=== PATIENT | female | born 1955 | race Caucasian/White ===

== ENCOUNTER 2017-03-17 18:56 | Inpatient (IN) | payer MEDICARE, OTHER ==
[~2017-03-17] VITALS: Ht 165.1 cm; Wt 61.4 kg
[~2017-03-17 18:56] MED LIST: ALBU8HFA PO; METH125V13 IM; NAPR-1154 PO; PRED10TA23 PO
[2017-03-17] MEDS ORDERED: azithromycin/NS 500mg/250ml 250 ML IV ONE (19:30)
[2017-03-17] MEDS ORDERED: methylPREDNISolone sod succ 125mg/2ml vial IV ONE (19:30)
[2017-03-17] MEDS ORDERED: ipratropium/albuterol 3ml nebule NEB ONE (19:30)
[2017-03-17] MEDS ORDERED: CefTRIAXone 2gm/D5W 50ml ADVTG 50 ML IV ONE (19:30)
[2017-03-17] MEDS ORDERED: magnesium 2GM in 50ml NS 50 ML IV ONE (19:30)
[2017-03-17 19:55] LABS: CLARITY,URINE CLEAR (Clear); COLOR,URINE YELLOW (Yellow); GLUCOSE, URINE NEGATIVE (Neg); KETONES,URINE NEGATIVE (Neg); LEUKOCYTE ESTERASE ,URINE NEGATIVE (Neg); NITRITES, URINE NEGATIVE (Neg); OCCULT BLOOD,URINE TRACE-INTACT (Neg); PROTEIN,URINE NEGATIVE (Neg); UROBILINOGEN,URINE >=8.0 E.U/dL (0.2-1.0)
[2017-03-17 19:56] LABS: URINE HCG NEGATIVE (NEG)
[2017-03-17 20:00] LABS: URINE AMPHETAMINE SCREEN POSITIVE (Neg); URINE BARBITUATE SCREEN NEGATIVE (Neg); URINE BENZODIAZEPINES SCREEN NEGATIVE (Neg); URINE CANNABINOID SCREEN NEGATIVE (Neg); URINE COCAINE SCREEN NEGATIVE (Neg); URINE METHADONE SCREEN NEGATIVE (Neg); URINE OPIATE SCREEN POSITIVE (Neg); URINE PHENCYCLIDINE SCREEN NEGATIVE (Neg)
[2017-03-17 20:07] LABS: UA COLLECTION TYPE FOLEY CATH
[2017-03-17 20:08] LABS: BASOPHILS % (AUTO) 0.4 % (0-1); EOSINOPHILS # (AUTO) 0.3 X10'3 (0-0.9); EOSINOPHILS % (AUTO) 2.4 % (0-6); HEMATOCRIT 46.7 % (35.0-45.0); HEMOGLOBIN 15.1 g/dl (12.0-16.0); LYMPHOCYTES # (AUTO) 1.9 X10'3 (1.1-4.8); LYMPHOCYTES % (AUTO) 14.3 % (21-51); MEAN CORPUSCULAR HEMOGLOBIN 30.9 PG (27.0-31.0); MEAN CORPUSCULAR HGB CONC 32.4 % (33.0-36.5); MEAN CORPUSCULAR VOLUME 95.6 FL (78-98); MEAN PLATELET VOLUME 7.3 FL (7.4-10.4); MONOCYTES # (AUTO) 0.9 X10'3 (0-0.9); MONOCYTES % (AUTO) 6.6 % (2-12); NEUTROPHILS % (AUTO) 76.3 % (42-75); PLATELET COUNT 267 X10'3 (140-440); RED BLOOD COUNT 4.89 X10'6 (4.20-5.60); RED CELL DISTRIBUTION WIDTH 14.7 % (11.5-14.5); WHITE BLOOD COUNT 13.1 X10'3 (4.5-11.0)
[2017-03-17 20:09] LABS: BACTERIA,URINE FEW /HPF (Neg); MUCUS STRANDS FEW /LPF (Neg); RBC,URINE NONE SEEN /HPF (0-2); SQUAMOUS EPITHELIAL CELL,UR MODERATE /LPF (FEW); WBC,URINE 0-4 /HPF (0-4)
[2017-03-17 20:17] LABS: INR 1.1 INR; PARTIAL THROMBOPLASTIN TIME 25 SECONDS (22-32); PROTHROMBIN TIME 11.1 SECONDS (9.0-12.0)
[2017-03-17 20:31] LABS: ALANINE AMINOTRANSFERASE 36 U/L (12-78); ALBUMIN 1.5 G/DL (3.4-5.0); ALBUMIN/GLOBULIN RATIO 0.3 (1.1-1.5); ALKALINE PHOSPHATASE 243 IU/L (46-116); ANION GAP -2 (8-16); ASPARTATE AMINO TRANSFERASE 62 U/L (10-37); BILIRUBIN,TOTAL 0.5 MG/DL (0.1-1.0); BLOOD UREA NITROGEN 13 MG/DL (7-18); BUN/CREATININE RATIO 14.8 (6.6-38.0); CALCIUM 8.6 MG/DL (8.5-10.1); CHLORIDE 100 MMOL/L (99-107); CREATININE 0.88 MG/DL (0.40-0.90); GLUCOSE 130 MG/DL (70-104); MAGNESIUM 1.6 MG/DL (1.5-2.4); POTASSIUM 4.9 MMOL/L (3.5-5.1); SODIUM 138 MMOL/L (135-145); TOTAL CARBON DIOXIDE 39.7 MMOL/L (24-32); TOTAL PROTEIN 7.5 G/DL (6.4-8.2); TROPONIN I < 0.04 NG/ML (0.0-0.05); eGFR 65 ML/MIN
[2017-03-17 21:05] LABS: ABG BASE EXCESS 9.3 mmol/L (-2.0-3.0); ABG HCO3 37.9 mmol/L (22.0-26.0); ABG OXYGEN SATURATION 96.8 % (95-98); ABG PCO2 (T) 71.6 mmHg (32.0-45.0); ABG PH (T) 7.343 (7.350-7.450); ABG PO2 (T) 96.7 mmHg (83-108); ALLEN'S TEST Positive; FCOHb 0.8 % (0.5-1.5); FLOW 5 L/min; FMetHb 0.3 % (0.3-1.12); FO2Hb 95.7 % (94-100); PATIENT TEMPERATURE 37.4; TOTAL HEMOGLOBIN 14.6 G/dl (12.0-16.0)
[2017-03-17 23:06] LABS: ABG BASE EXCESS 10.3 mmol/L (-2.0-3.0); ABG HCO3 37.2 mmol/L (22.0-26.0); ABG OXYGEN SATURATION 92.8 % (95-98); ABG PCO2 (T) 59.2 mmHg (32.0-45.0); ABG PH (T) 7.417 (7.350-7.450); ABG PO2 (T) 64.4 mmHg (83-108); ALLEN'S TEST Positive; FMetHb 0.3 % (0.3-1.12); FO2Hb 91.6 % (94-100); PATIENT TEMPERATURE 37.2
[2017-03-17] MEDS ORDERED: ipratropium/albuterol 3ml nebule NEB PRN (23:30)
[2017-03-17] MEDS ORDERED: mag hydrox/Alum hydrox/simeth 30ml oral suspension PO PRN (23:30)
[2017-03-17] MEDS ORDERED: acetaminophen 325mg tablet PO PRN ×2 (23:30)
[2017-03-17] MEDS ORDERED: magnesium hydroxide 30ml (MOM) UD suspension PO PRN (23:30)
[2017-03-17] MEDS ORDERED: ondansetron/PF 4mg/2ml inj IV PRN (23:30)
[2017-03-17] MEDS ORDERED: morphine 2 MG/ML inj. syringe IV PRN (23:30)
[2017-03-18] MEDS: normal saline 1000ml 1,000 ML IV SCH ×3 (00:28→18:59)
[2017-03-18] MEDS: methylPREDNISolone sod succ 125mg/2ml vial IV SCH ×4 (02:08→19:50)
[2017-03-18 07:50] LABS: BASOPHILS % (AUTO) 0.2 % (0-1); EOSINOPHILS # (AUTO) 0.1 X10'3 (0-0.9); EOSINOPHILS % (AUTO) 1.1 % (0-6); HEMATOCRIT 41.6 % (35.0-45.0); HEMOGLOBIN 13.9 g/dl (12.0-16.0); LYMPHOCYTES # (AUTO) 0.9 X10'3 (1.1-4.8); LYMPHOCYTES % (AUTO) 7.7 % (21-51); MEAN CORPUSCULAR HEMOGLOBIN 31.3 PG (27.0-31.0); MEAN CORPUSCULAR HGB CONC 33.4 % (33.0-36.5); MEAN CORPUSCULAR VOLUME 93.8 FL (78-98); MEAN PLATELET VOLUME 7.7 FL (7.4-10.4); MONOCYTES # (AUTO) 0.2 X10'3 (0-0.9); MONOCYTES % (AUTO) 1.4 % (2-12); NEUTROPHILS # (AUTO) 10.2 X10'3 (1.8-7.7); NEUTROPHILS % (AUTO) 89.6 % (42-75); PLATELET COUNT 245 X10'3 (140-440); RED BLOOD COUNT 4.44 X10'6 (4.20-5.60); RED CELL DISTRIBUTION WIDTH 14.2 % (11.5-14.5); WHITE BLOOD COUNT 11.4 X10'3 (4.5-11.0)
[2017-03-18 07:59] LABS: ALBUMIN 1.3 G/DL (3.4-5.0); ANION GAP 1 (8-16); BLOOD UREA NITROGEN 18 MG/DL (7-18); BUN/CREATININE RATIO 20.2 (6.6-38.0); CALCIUM 8.3 MG/DL (8.5-10.1); CHLORIDE 102 MMOL/L (99-107); CREATININE 0.89 MG/DL (0.40-0.90); GLUCOSE 161 MG/DL (70-104); POTASSIUM 5.1 MMOL/L (3.5-5.1); SODIUM 138 MMOL/L (135-145); TOTAL CARBON DIOXIDE 34.9 MMOL/L (24-32); eGFR 64 ML/MIN
[2017-03-18] MEDS ORDERED: CefTRIAXone 2gm/D5W 50ml ADVTG 50 ML IV SCH (08:00)
[2017-03-18] MEDS: enoxaparin 40mg/0.4ml syringe SUBCUT SCH (08:38)
[2017-03-18] MEDS: azithromycin/NS 500mg/250ml 250 ML IV SCH (09:25)
[2017-03-18] MEDS ORDERED: NO HOME MEDS (15:34)
[2017-03-18 17:10] VITALS: BP 150/77
[2017-03-18] MEDS: nicotine 21mg patch - 24 hr TD SCH (18:01)
[2017-03-18 19:00] VITALS: BP 104/71
[2017-03-18] MEDS: morphine 2 MG/ML inj. syringe IV PRN (21:59)
[2017-03-18 23:00] VITALS: BP 165/86
[2017-03-19] MEDS: methylPREDNISolone sod succ 125mg/2ml vial IV SCH ×4 (02:08→19:48)
[2017-03-19] MEDS: normal saline 1000ml 1,000 ML IV SCH ×2 (02:16→15:18)
[2017-03-19 03:00] VITALS: BP 128/67
[2017-03-19 05:38] LABS: ALBUMIN 1.4 G/DL (3.4-5.0); ANION GAP 1 (8-16); BLOOD UREA NITROGEN 24 MG/DL (7-18); BUN/CREATININE RATIO 27.9 (6.6-38.0); CALCIUM 8.5 MG/DL (8.5-10.1); CHLORIDE 102 MMOL/L (99-107); CREATININE 0.86 MG/DL (0.40-0.90); GLUCOSE 243 MG/DL (70-104); POTASSIUM 5.2 MMOL/L (3.5-5.1); SODIUM 134 MMOL/L (135-145); TOTAL CARBON DIOXIDE 31.4 MMOL/L (24-32); eGFR 67 ML/MIN
[2017-03-19 05:43] LABS: BASOPHILS % (AUTO) 0.1 % (0-1); EOSINOPHILS # (AUTO) 0.2 X10'3 (0-0.9); EOSINOPHILS % (AUTO) 1.3 % (0-6); HEMATOCRIT 43.5 % (35.0-45.0); HEMOGLOBIN 14.3 g/dl (12.0-16.0); LYMPHOCYTES # (AUTO) 0.9 X10'3 (1.1-4.8); LYMPHOCYTES % (AUTO) 5.1 % (21-51); MEAN CORPUSCULAR HGB CONC 32.8 % (33.0-36.5); MEAN CORPUSCULAR VOLUME 94.4 FL (78-98); MEAN PLATELET VOLUME 7.9 FL (7.4-10.4); MONOCYTES # (AUTO) 0.3 X10'3 (0-0.9); MONOCYTES % (AUTO) 1.6 % (2-12); NEUTROPHILS # (AUTO) 16.5 X10'3 (1.8-7.7); NEUTROPHILS % (AUTO) 91.9 % (42-75); PLATELET COUNT 287 X10'3 (140-440); RED BLOOD COUNT 4.61 X10'6 (4.20-5.60); RED CELL DISTRIBUTION WIDTH 14.4 % (11.5-14.5); WHITE BLOOD COUNT 17.9 X10'3 (4.5-11.0)
[2017-03-19 06:00] VITALS: BP 135/69
[2017-03-19] MEDS: CefTRIAXone 2gm/NS 100ml IVPB 100 ML IV SCH (08:58)
[2017-03-19] MEDS: azithromycin/NS 500mg/250ml 250 ML IV SCH (08:58)
[2017-03-19] MEDS: enoxaparin 40mg/0.4ml syringe SUBCUT SCH (08:59)
[2017-03-19] MEDS: LACTOBACILLUS RHAMNOSUS GG 15 billion unit sprinkle caps PO SCH (08:59)
[2017-03-19] MEDS: nicotine 21mg patch - 24 hr TD SCH (09:00)
[2017-03-19 11:00] VITALS: BP 158/82
[2017-03-19] MEDS: clonazePAM 1mg tablet PO PRN (11:19)
[2017-03-19 15:00] VITALS: BP 152/83
[2017-03-19 15:51] LABS: ABG BASE EXCESS 2.9 mmol/L (-2.0-3.0); ABG HCO3 29.4 mmol/L (22.0-26.0); ABG PCO2 (T) 52.5 mmHg (32.0-45.0); ABG PH (T) 7.366 (7.350-7.450); ABG PO2 (T) 62.9 mmHg (83-108); ALLEN'S TEST Positive; FCOHb 0.1 % (0.5-1.5); FLOW 6 L/min; FMetHb 0.4 % (0.3-1.12); FO2Hb 90.5 % (94-100); RESPIRATORY RATE (OBSERVED) 18 b/min; TOTAL HEMOGLOBIN 14.1 G/dl (12.0-16.0)
[2017-03-19 19:00] VITALS: BP 157/83
[2017-03-19] MEDS: morphine 2 MG/ML inj. syringe IV PRN (22:59)
[2017-03-19 23:00] VITALS: BP 149/87
[2017-03-20] VITALS (7 sets, daily range): BP systolic 139–175; BP diastolic 71–88
[2017-03-20] MEDS: normal saline 1000ml 1,000 ML IV SCH ×2 (01:07→12:19)
[2017-03-20] MEDS: methylPREDNISolone sod succ 125mg/2ml vial IV SCH ×4 (02:37→19:48)
[2017-03-20 05:13] LABS: BASOPHILS % (AUTO) 0.1 % (0-1); EOSINOPHILS # (AUTO) 0.2 X10'3 (0-0.9); EOSINOPHILS % (AUTO) 1.3 % (0-6); HEMATOCRIT 41.2 % (35.0-45.0); HEMOGLOBIN 13.7 g/dl (12.0-16.0); LYMPHOCYTES # (AUTO) 0.8 X10'3 (1.1-4.8); LYMPHOCYTES % (AUTO) 4.8 % (21-51); MEAN CORPUSCULAR HEMOGLOBIN 31.2 PG (27.0-31.0); MEAN CORPUSCULAR HGB CONC 33.2 % (33.0-36.5); MEAN PLATELET VOLUME 7.5 FL (7.4-10.4); MONOCYTES # (AUTO) 0.3 X10'3 (0-0.9); MONOCYTES % (AUTO) 1.9 % (2-12); NEUTROPHILS # (AUTO) 16.2 X10'3 (1.8-7.7); NEUTROPHILS % (AUTO) 91.9 % (42-75); PLATELET COUNT 271 X10'3 (140-440); RED BLOOD COUNT 4.38 X10'6 (4.20-5.60); RED CELL DISTRIBUTION WIDTH 14.6 % (11.5-14.5); WHITE BLOOD COUNT 17.6 X10'3 (4.5-11.0)
[2017-03-20 05:40] LABS: ALBUMIN 1.4 G/DL (3.4-5.0); ANION GAP 4 (8-16); BLOOD UREA NITROGEN 26 MG/DL (7-18); BUN/CREATININE RATIO 33.8 (6.6-38.0); CHLORIDE 106 MMOL/L (99-107); CREATININE 0.77 MG/DL (0.40-0.90); GLUCOSE 145 MG/DL (70-104); POTASSIUM 4.7 MMOL/L (3.5-5.1); SODIUM 139 MMOL/L (135-145); TOTAL CARBON DIOXIDE 29.3 MMOL/L (24-32); eGFR 76 ML/MIN
[2017-03-20] MEDS: enoxaparin 40mg/0.4ml syringe SUBCUT SCH (07:37)
[2017-03-20] MEDS: CefTRIAXone 2gm/NS 100ml IVPB 100 ML IV SCH (07:38)
[2017-03-20] MEDS: azithromycin/NS 500mg/250ml 250 ML IV SCH (07:38)
[2017-03-20] MEDS: nicotine 21mg patch - 24 hr TD SCH (07:38)
[2017-03-20] MEDS: LACTOBACILLUS RHAMNOSUS GG 15 billion unit sprinkle caps PO SCH (07:38)
[2017-03-20] MEDS: morphine 2 MG/ML inj. syringe IV PRN ×2 (11:39→15:24)
[2017-03-20] MEDS: hydrALAZINE 20mg/ml inj. IV PRN (15:22)
[2017-03-20] MEDS ORDERED: furosemide 20 MG/2 ML vial IV ONE (18:05)
[2017-03-21] VITALS (8 sets, daily range): BP systolic 134–170; BP diastolic 62–93
[2017-03-21] MEDS: normal saline 1000ml 1,000 ML IV SCH ×2 (01:15→16:41)
[2017-03-21] MEDS: methylPREDNISolone sod succ 125mg/2ml vial IV SCH ×5 (01:29→19:03)
[2017-03-21 05:27] LABS: BASOPHILS % (AUTO) 0.1 % (0-1); EOSINOPHILS % (AUTO) 0 % (0-6); HEMATOCRIT 43.4 % (35.0-45.0); HEMOGLOBIN 14.5 g/dl (12.0-16.0); LYMPHOCYTES # (AUTO) 0.8 X10'3 (1.1-4.8); LYMPHOCYTES % (AUTO) 6.1 % (21-51); MEAN CORPUSCULAR HEMOGLOBIN 31.3 PG (27.0-31.0); MEAN CORPUSCULAR HGB CONC 33.3 % (33.0-36.5); MEAN CORPUSCULAR VOLUME 94.1 FL (78-98); MEAN PLATELET VOLUME 7.8 FL (7.4-10.4); MONOCYTES # (AUTO) 0.3 X10'3 (0-0.9); MONOCYTES % (AUTO) 2.2 % (2-12); NEUTROPHILS # (AUTO) 11.4 X10'3 (1.8-7.7); NEUTROPHILS % (AUTO) 91.6 % (42-75); PLATELET COUNT 267 X10'3 (140-440); RED BLOOD COUNT 4.61 X10'6 (4.20-5.60); WHITE BLOOD COUNT 12.5 X10'3 (4.5-11.0)
[2017-03-21 05:46] LABS: ALBUMIN 1.5 G/DL (3.4-5.0); ANION GAP 4 (8-16); BLOOD UREA NITROGEN 31 MG/DL (7-18); BUN/CREATININE RATIO 39.2 (6.6-38.0); CALCIUM 8.3 MG/DL (8.5-10.1); CHLORIDE 105 MMOL/L (99-107); CREATININE 0.79 MG/DL (0.40-0.90); GLUCOSE 140 MG/DL (70-104); POTASSIUM 4.3 MMOL/L (3.5-5.1); SODIUM 138 MMOL/L (135-145); TOTAL CARBON DIOXIDE 28.9 MMOL/L (24-32); eGFR 74 ML/MIN
[2017-03-21] MEDS: enoxaparin 40mg/0.4ml syringe SUBCUT SCH (08:27)
[2017-03-21] MEDS: LACTOBACILLUS RHAMNOSUS GG 15 billion unit sprinkle caps PO SCH (08:27)
[2017-03-21] MEDS: nicotine 21mg patch - 24 hr TD SCH ×2 (08:27→09:06)
[2017-03-21] MEDS: morphine 2 MG/ML inj. syringe IV PRN ×2 (08:29→10:17)
[2017-03-21] MEDS: hydrALAZINE 20mg/ml inj. IV PRN (09:05)
[2017-03-21] MEDS: CefTRIAXone 2gm/NS 100ml IVPB 100 ML IV SCH (10:17)
[2017-03-21] MEDS: cloNIDine 0.1 mg tablet PO PRN (10:18)
[2017-03-21] MEDS: azithromycin/NS 500mg/250ml 250 ML IV SCH (10:18)
[2017-03-21] MEDS: clonazePAM 1mg tablet PO PRN (19:02)
[2017-03-22 02:35] VITALS: BP 163/85
[2017-03-22] MEDS: cloNIDine 0.1 mg tablet PO PRN (02:41)
[2017-03-22] MEDS: methylPREDNISolone sod succ 125mg/2ml vial IV SCH ×4 (02:42→19:10)
[2017-03-22 03:58] VITALS: BP 145/80
[2017-03-22 05:06] LABS: BASOPHILS % (AUTO) 0.1 % (0-1); EOSINOPHILS # (AUTO) 0.2 X10'3 (0-0.9); EOSINOPHILS % (AUTO) 1.8 % (0-6); HEMATOCRIT 39.5 % (35.0-45.0); HEMOGLOBIN 13.5 g/dl (12.0-16.0); LYMPHOCYTES # (AUTO) 0.7 X10'3 (1.1-4.8); LYMPHOCYTES % (AUTO) 6.7 % (21-51); MEAN CORPUSCULAR HEMOGLOBIN 31.5 PG (27.0-31.0); MEAN CORPUSCULAR HGB CONC 34.1 % (33.0-36.5); MEAN CORPUSCULAR VOLUME 92.4 FL (78-98); MEAN PLATELET VOLUME 7.9 FL (7.4-10.4); MONOCYTES # (AUTO) 0.4 X10'3 (0-0.9); MONOCYTES % (AUTO) 4.2 % (2-12); NEUTROPHILS % (AUTO) 87.2 % (42-75); PLATELET COUNT 225 X10'3 (140-440); RED BLOOD COUNT 4.27 X10'6 (4.20-5.60); RED CELL DISTRIBUTION WIDTH 14.7 % (11.5-14.5); WHITE BLOOD COUNT 10.3 X10'3 (4.5-11.0)
[2017-03-22 05:25] LABS: ALBUMIN 1.3 G/DL (3.4-5.0); ANION GAP 2 (8-16); BLOOD UREA NITROGEN 38 MG/DL (7-18); BUN/CREATININE RATIO 50.7 (6.6-38.0); CHLORIDE 106 MMOL/L (99-107); CREATININE 0.75 MG/DL (0.40-0.90); GLUCOSE 174 MG/DL (70-104); POTASSIUM 4.2 MMOL/L (3.5-5.1); SODIUM 136 MMOL/L (135-145); TOTAL CARBON DIOXIDE 27.6 MMOL/L (24-32); eGFR 79 ML/MIN
[2017-03-22 06:00] VITALS: BP 146/74
[2017-03-22] MEDS: nicotine 21mg patch - 24 hr TD SCH (08:36)
[2017-03-22] MEDS: enoxaparin 40mg/0.4ml syringe SUBCUT SCH (08:37)
[2017-03-22] MEDS: CefTRIAXone 2gm/NS 100ml IVPB 100 ML IV SCH (08:37)
[2017-03-22] MEDS: LACTOBACILLUS RHAMNOSUS GG 15 billion unit sprinkle caps PO SCH (08:37)
[2017-03-22] MEDS: azithromycin/NS 500mg/250ml 250 ML IV SCH (08:37)
[2017-03-22] MEDS: HYDROcodone/acetaminophen 10/325mg tab PO PRN ×2 (08:57→19:14)
[2017-03-22] MEDS: clonazePAM 1mg tablet PO PRN (10:03)
[2017-03-22 11:00] VITALS: BP 147/81
[2017-03-22 18:00] VITALS: BP 144/88
[2017-03-22] MEDS: normal saline 1000ml 1,000 ML IV SCH (19:00)
[2017-03-22 22:00] VITALS: BP 150/84
[2017-03-23] MEDS: methylPREDNISolone sod succ 125mg/2ml vial IV SCH ×3 (01:17→14:58)
[2017-03-23] MEDS: HYDROcodone/acetaminophen 10/325mg tab PO PRN ×3 (01:21→13:17)
[2017-03-23 02:00] VITALS: BP 146/83
[2017-03-23 06:35] VITALS: BP_SYST 157; BP_SYST 183; BP_DIAS 86
[2017-03-23] MEDS: enoxaparin 40mg/0.4ml syringe SUBCUT SCH (08:02)
[2017-03-23] MEDS: LACTOBACILLUS RHAMNOSUS GG 15 billion unit sprinkle caps PO SCH (08:03)
[2017-03-23] MEDS: CefTRIAXone 2gm/NS 100ml IVPB 100 ML IV SCH (08:05)
[2017-03-23] MEDS: nicotine 21mg patch - 24 hr TD SCH (08:05)
[2017-03-23] MEDS: azithromycin/NS 500mg/250ml 250 ML IV SCH (08:06)
[2017-03-23 11:00] VITALS: BP 148/84
[2017-03-23 15:00] VITALS: BP 158/91
[2017-03-23] MEDS: normal saline 1000ml 1,000 ML IV SCH (15:05)
[2017-03-23] MEDS ORDERED: furosemide 40mg/4ml inj IV ONE (15:25)
[2017-03-23] MEDS: clonazePAM 1mg tablet PO PRN (15:45)
[2017-03-23] MEDS: lisinopril 20mg tablet PO SCH (15:49)
[2017-03-23 19:00] VITALS: BP 148/77
[2017-03-23] MEDS: metoprolol tartrate 12.5mg (1/2 tablet) PO SCH (19:23)
[2017-03-23] MEDS: HYDROcodone/acetaminophen 5mg/325mg tablet PO PRN (19:24)
[2017-03-23 23:00] VITALS: BP 155/88
[2017-03-24 02:56] VITALS: BP 145/76
[2017-03-24 05:30] VITALS: BP 159/80
[2017-03-24] MEDS: nicotine 21mg patch - 24 hr TD SCH (07:51)
[2017-03-24] MEDS: metoprolol tartrate 12.5mg (1/2 tablet) PO SCH (07:52)
[2017-03-24] MEDS: lisinopril 20mg tablet PO SCH (07:52)
[2017-03-24] MEDS: LACTOBACILLUS RHAMNOSUS GG 15 billion unit sprinkle caps PO SCH (07:52)
[2017-03-24] MEDS: enoxaparin 40mg/0.4ml syringe SUBCUT SCH (07:53)
[2017-03-24] MEDS: HYDROcodone/acetaminophen 5mg/325mg tablet PO PRN (07:53)
[2017-03-24] MEDS: azithromycin/NS 500mg/250ml 250 ML IV SCH (08:00)
[2017-03-24] MEDS ORDERED: furosemide 40mg/4ml inj IV SCH (08:00)
[2017-03-24] MEDS: CefTRIAXone 2gm/NS 100ml IVPB 100 ML IV SCH (08:01)
[2017-03-24] MEDS ORDERED: LISI-600 PO (10:35)
[2017-03-24] MEDS ORDERED: AMOX-422 PO (10:35)
[2017-03-24] MEDS ORDERED: METO25TA6 PO (10:35)
[2017-03-24] MEDS ORDERED: AMLO5TAB4 PO (10:35)
[2017-03-24] MEDS ORDERED: NICO-687 TD (10:35)
[2017-03-24] MEDS ORDERED: ALBU8.5H8 IH (10:39)
[2017-03-24] MEDS ORDERED: PRED20TA PO (10:42)
[2017-03-24 11:00] VITALS: BP 153/77
== END 2017-03-24 13:45 | disposition home or self-care (01) | DRG 193 ==
LOC: ER 18:57 → ED HOLD 23:26 → EDBEDREQ 03-18 16:19 → PCU 3S 03-18 16:45
PROVIDERS: ADMIT Internal Medicine; ATTEND Family Medicine
PROC: 5A09357 Assistance with Respiratory Ventilation, Less than 24 Consecutive Hours, Continuous Positive Airway Pressure (ICD-10-PCS; principal; 2017-03-17)
DX: J18.9 Pneumonia, unspecified organism (principal); E43 Unspecified severe protein-calorie malnutrition; J96.01 Acute respiratory failure with hypoxia; R65.11 Systemic inflammatory response syndrome (SIRS) of non-infectious origin with acute organ dysfunction; J44.1 Chronic obstructive pulmonary disease with (acute) exacerbation; E87.1 Hypo-osmolality and hyponatremia; J44.0 Chronic obstructive pulmonary disease with (acute) lower respiratory infection; F32.9 Major depressive disorder, single episode, unspecified; F41.9 Anxiety disorder, unspecified; G89.29 Other chronic pain; F15.10 Other stimulant abuse, uncomplicated; I10 Essential (primary) hypertension; F17.210 Nicotine dependence, cigarettes, uncomplicated; Z91.19 Patient's noncompliance with other medical treatment and regimen; Z99.81 Dependence on supplemental oxygen; Z88.2 Allergy status to sulfonamides; Z68.22 Body mass index [BMI] 22.0-22.9, adult
CPT/HCPCS: 36415; 36600; 71045; 71046; 80048; 80053; 80305; 81001; 81025; 82803; 83605; 83735; 83880; 84145; 84484; 85018; 85025; 85610; 85730; 87040; 87070; 87502; 87503; 93005; 94640; 94660; 94667; 94760; 96365; 96366; 96368; 96375; 99285; A4315; A6213; J0360; J0456; J0696; J1650; J1940; J2270; J2930; J3475; J7030